=== PATIENT | female | born 1995 | race Caucasian/White ===

== ENCOUNTER 2016-06-29 07:01 | Day surgery (SDC) | payer OTHER ==
[2016-05-14 14:12] VITALS: BMI 20.9
[2016-06-29] MEDS ORDERED: Ofloxacin 0.3% Ophth Soln ONE (07:26)
[2016-06-29] MEDS ORDERED: Lactated Ringer's 1,000 ML IV ONE (07:45)
[2016-06-29] MEDS ORDERED: Propofol 10 mg/ml Inj (20 ML) ONE (07:48)
[2016-06-29] MEDS ORDERED: Acetaminophen/Codeine elixir 120-12mg/5ml PO PRN (08:09)
[2016-06-29] MEDS ORDERED: Dextrose 5%/0.45% NS 1,000 ML IV SCH (08:15)
[2016-06-29] MEDS ORDERED: Atropine Sulfate 0.4 mg/ml (0.8mg/2ml) Syringe IV ONE (08:25)
[2016-06-29 09:32] VITALS: O2SAT 98
--- NOTE | 2016-06-29 10:02 | OP ---
PROCEDURE DATE: 06/29/2016 PREOPERATIVE DIAGNOSIS: Cerumen impaction. POSTOPERATIVE DIAGNOSIS: Cerumen impaction. PROCEDURE: Ear exam under anesthesia with ear wax removal. SIGNIFICANT FINDINGS: Ear wax. DESCRIPTION OF PROCEDURE: The patient was brought in room, placed in supine position. Anesthesia wa s initiated through LMA. The patient was draped in the usual manner. The right ear was brought into view using operative microscope and ear speculum. Wax was noted in the ear which was removed using suction. TM was noted to be intact with no fluid behind it. Next, the head was turned. The other e ar was brought into view using operative microscope and ear speculum. Wax was noted in the ear canal which was removed using suction. TM was noted to be intact with no fluid behind it. The ear specul um and microscope were taken out of position. The patient was taken off anesthesia and taken to [facility] room in stable manner. Nader Wong MD cc: [id number] TT: 06/29/2016 10:02:00 tn
[2016-06-29 11:44] VITALS: BP 100/59; PULSE 81; RESP 15; TEMP 97.5
== END 2016-06-29 10:06 | disposition home or self-care (01) ==
LOC: C.SDS 07:01
PROVIDERS: ATTEND Otolaryngology
DX: H61.23 Impacted cerumen, bilateral (principal)
CPT/HCPCS: 69210; 82948; J2704; J7120

== ENCOUNTER 2017-10-18 07:35 | Day surgery (SDC) | payer OTHER ==
[2016-05-14 14:12] VITALS: BMI 20.9
[~2017-10-18 07:35] MED LIST: Ofloxacin 0.3% Ophth Soln ONE
[2017-10-18] MEDS ORDERED: Dextrose 50% SYRINGE Inj (50 ml) IV STA (10:03)
[2017-10-18] MEDS ORDERED: Dextrose 50% SYRINGE Inj (50 ml) ONE (10:11)
[2017-10-18] MEDS ORDERED: Dextrose 5%/Lactated Ringer's 1,000 ML IV SCH (10:15)
[2017-10-18] MEDS ORDERED: Lactated Ringer's 300 ML IV ONE (11:25)
[2017-10-18 13:07] VITALS: BP 107/60; PULSE 78; RESP 20; TEMP 98; O2SAT 100
--- NOTE | 2017-10-18 22:29 | OP ---
PROCEDURE DATE: 10/18/2017 PREOPERATIVE DIAGNOSIS: Impacted earwax, bilateral. POSTOPERATIVE DIAGNOSIS: Impacted earwax, bilateral. PROCEDURE: Ear exam under anesthesia with earwax removal. SIGNIFICANT FINDINGS: Impacted earwax on both sides. DESCRIPTION OF PROCEDURE: The patient was brought into the room, placed in supine position. Anesthesia was initiated through facemask. The head was turned. The patient was draped in the usual manner. The right ear was brought to view using operative microscope and ear speculum. Impacted earwax was noted and removed using micro instruments. TM was noted to be intact. No fluid behind it. The head was turned. The other ear was brought to view using operative microscope and ear speculum. Impacted earwax was noted and removed using micro instruments. TM was noted to be intact with no fluid behind. Ear speculum and the microscope were taken out of position. The patient was taken off anesthesia and taken to the recovery room in stable manner. Nader Wong MD
== END 2017-10-18 12:55 | disposition home or self-care (01) ==
LOC: C.SDS 07:35
PROVIDERS: ATTEND Otolaryngology
DX: H61.23 Impacted cerumen, bilateral (principal)
CPT/HCPCS: 36415; 69210; 82948; 84702; J7070; J7120

== ENCOUNTER 2018-07-01 11:58 | Outpatient (CLI) | payer OTHER | END 2018-07-01 11:59 | disposition home or self-care (01) | LOC: C.RADIC 11:58 | DX: Z01.818 Encounter for other preprocedural examination (principal) ==